=== PATIENT | male | born 1980 ===

== ENCOUNTER 2023-10-31 12:55 | Outpatient (POV) | payer BC, SELFPAY ==
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
--- OUTSIDE RECORDS SUMMARY | 2023-10-31 12:59 | XMS_ITS | Clinical Summary ---
Author Name Unknown Address [address] [place] [address] [place] [address] Phone Organization [facility] Address [address] [place] [address] Phone Care Team Providers Care Parts Specialist Name Role Phone Ashley AGUIRRE, Yefri Peace Unavailable [phone] JAYCE LOONEY PA-C Unavailable [phone] Reason for Visit and Chief Complaint [facility] Problems Includes: Problems addressed during this encounter and other active Problems All Visits Onset Date Resolved Date Provider Condition S tatus Joint Pain in Both Knees 07/18/2023 Bradley zapata MD Active Last Documented On 4 9:17AM ; [facility] Bone Pain in the Right Foot 11/05/2022 Yefri Ramirez DPM Active Last Documented On 3 9:45AM ; [facility] Plan of Treatment Pending Tests Order Diagnosis Results Due Ordering P rovider Radiology - MRI MRI Knee Pain in right knee 08/06/23 Gia Akins MD Last Documented On 4 12:04PM ; [facility], [facility] Future Appointments Date Time Location Provi ivelisse Follow Up 12/23/2023 11:00AM [facility] B Marisol Odonnell PA-C Last Documented On 4 2:40PM ; [facility] Assessments Includes: Assessments from this encounter No Assessments Recorded Medical Equipment - Implanted Devices Includes: Current Devices No Medical Equipment Recorded Medications Includes: Medications discussed during this encounter and other current Medications Current Medications (continue as prescribed) oxyCODONE HCl 5 MG Oral Tablet 08/21/2023 Provider: Nimesh Akins MD Diagnosis: 1-2 p o q 6-8h Last Documented On 4 8:39AM By Nimesh Akins M.D. ; [facility] Ondansetron HCl 4 MG Oral Tablet 08/21/2023 Provider : Nimesh Akins MD Diagnosis: 1 po q 6h prn nausea Last Documented On 4 8:39AM By Nimesh Akins M.D. ; [facility] Aspirin Adult Low Dose 81 MG Oral Tablet Delayed Release 08/21/2023 Provider: Nimesh Akins MD Diagnosis: once a day Last Documented On 4 8:39AM By Nimesh Akins M.D. ; [facility] Robaxin-750 750 MG Oral Tablet 11/05/2022 Provider: Diagnosis: Last Documented On 3 9:45AM By Lavinia Dyson ; [facility] Gabapentin 600 MG Oral Tablet 10/19/2022 Provider: JAYCE LOONEY PA-C Diagnosis: Last Documented On 3 9:45AM By Lavinia Dyson ; [facility] Medications Administered Includes: Administered Medications from this encounter No Administered Medications Recorded Results Includes: Results discussed during this encounter No Results Recorded For Specified Dates History of Present Illness Includes: History of Present Illness from this encounter No History of Present Illness Recorded Social History No Social History Recorded - Smoking Status Unknown Procedures and Surgical History Includes: Procedures from this encounter Procedures Code Diagnosis Performing Provider Service Location Service Date ATS PLICA EXCISION (RIGHT) [address]168 Hypertrophy of (infrapatellar) fat pad, Chondromalacia patellae, right knee Nimesh Akins MD [facility] Surgical Division 08/22/2023 Last Documented On 4 8:50AM ; [facility] Medical History Includes: Medical History addressed during this encounter No Medical History Recorded Family History Includes: Family History addressed during this encounter No Family History Recorded Review of Systems Includes: Review of Systems from this encounter No Review of Systems Recorded Mental Status Includes: Mental Status from this encounter No Mental Status Recorded Functional Status Includes: Functional Status from this encounter No Functional Status Recorded Physical Exam Includes: Physical Exam from this encounter No Physical Exam Recorded Allergies Includes: Active Allergies Substance Type Reaction Onset Date Resolved Date Statu s Ceftin Allergy 11/05/2022 Active Last Documented On 4 2:10PM ; [facility], [facility] Encounters Encounter Provider Location Date Check-In Time Check- Out Time Diagnosis [facility] Out[facility] Nimesh Akins MD Surgery 4 2:36PM 11:59PM Insurance Includes: Active Insurance Policies Plan Name Member ID Group # Subscriber Relationship Effect autumn Dates 1 - [facility] [id number] Douglas Berry Self Clinical Notes Includes: Clinical Notes from this encounter No Clinical Notes Recorded
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
--- OUTSIDE RECORDS SUMMARY | 2023-10-31 12:59 | XMS_ITS | Clinical Summary ---
Author Name Unknown Address [address] [place] [address] [place] [address] Phone Organization [facility] Address [address] [place] [address] Phone Care Team Providers Care Rn Cardiac Rehab Name Role Phone Ashley AGUIRRE, Yefri Peace Unavailable Unavailable AAYUSH RUBIO, DON Unavailable [phone] Reason for Visit and Chief Complaint The Chief Complaint is: bilateral knee pain Problems Includes: Problems addressed during this encounter and other active Problems All Visits Onset Date Resolved Date Provider Condition S tatus Joint Pain in Both Knees 07/18/2023 Bradley zapata MD Active Last Documented On 4 9:17AM ; [facility], [facility] Bone Pain in the Right Foot 11/05/2022 Yefri Ramirez DPM Active Last Documented On 3 9:45AM ; [facility] Plan of Treatment Pending Tests Order Diagnosis Results Due Ordering P rovider Radiology - MRI MRI Knee Pain in right knee 08/06/23 Gia Akins MD Last Documented On 4 12:04PM ; [facility], [facility] Future Appointments Date Time Location Provi ivelisse Follow Up 12/23/2023 11:00AM [facility] paedics [facility] B Marisol Odonnell PA-C Last Documented On 4 2:40PM ; [facility], [facility] Instructions to patient Lose weight Last Documented On 4 2:10PM ; [facility], [facility] Assessments Includes: Assessments from this encounter Findings HISTORY OF PRESENT ILLNESS - Last Documented On 10/22/2023 3:28PM ; [facility], [facility] The patient is a 43-year-old male presenting for right knee. He is now about 2 months out from right knee arthroscopy with fat pad debridement and patella chondral debridement. - Last Documented On 10/22/2023 3:28PM ; [facility], [facility] The patient reports overall improvement in his condition, however, he expresses a perceived decrease in mobility and a perceived cessation of improvement over the past 1 to 2 weeks. His physical therapist has recommended a return visit for further evaluation. He describes persistent swelling of the right knee, weakness, and a sensation of instability in the knee. - Last Documented On 10/22/2023 3:28PM ; [facility], [facility] PHYSICAL EXAM - Last Documented On 10/22/2023 3:28PM ; [facility], [facility] Well appearing male, in no acute distress. - Last Documented On 10/22/2023 3:28PM ; [facility], [facility] Right knee shows well-healed incisions. Range of [...] on the medial or lateral joint line. - Last Documented On 10/22/2023 3:28PM ; [facility], [facility] ASSESSMENT AND PLAN - Last Documented On 10/22/2023 3:28PM ; [facility], [facility] The patient is a 43-year-old male about 2 months out from right knee arthroscopy with fat pad debridement and patella chondral debridement. - Last Documented On 10/22/2023 3:28PM ; [facility], [facility] 1. Post-operative status of right knee arthroscopy. - Last Documented On 10/22/2023 3:28PM ; [facility], [facility] The majority of the patient's symptoms are [...] his strength and improve his overall well-being. - Last Documented On 10/22/2023 3:28PM ; [facility] Follow-up - Last Documented On 10/22/2023 3:28PM ; [facility] A follow-up appointment is scheduled for 2 months from now for a re-evaluation to ensure continued progress. - Last Documented On 10/22/2023 3:28PM ; [facility] Instructions Includes: Instructions from this encounter Instructions to patient Lose weight Last Documented On 4 2:10PM ; [facility] Medical Equipment - Implanted Devices Includes: Current Devices No Medical Equipment Recorded Medications Includes: Medications discussed during this encounter and other current Medications New / Renewed during this visit Nimesh Akins MD on 10/22/2023 Medrol 4 MG Oral Tablet Therapy Pack Provider: Nimesh Akins MD 7 day supply: 21 tablet, 0 refills Diagnosis: use as directed Pharmacy: [facility] - [address] [facility], [address] - Last Documented On 4 2:41PM By Melvina Wong ; [facility] Current Medications (continue as prescribed) oxyCODONE HCl 5 MG Oral Tablet 08/21/2023 Provider: Nimesh Akins MD Diagnosis: 1-2 p o q 6-8h Last Documented On 4 8:39AM By Nimesh Akins M.D. ; [facility] Ondansetron HCl 4 MG Oral Tablet 08/21/2023 Provider : Nimesh Akins MD Diagnosis: 1 po q 6h prn nausea Last Documented On 4 8:39AM By Nimesh Akins M.D. ; [facility] Aspirin Adult Low Dose 81 MG Oral Tablet Delayed Release 08/21/2023 Provider: Nimesh Akins MD Diagnosis: once a day Last Documented On 4 8:39AM By Nimesh Akins M.D. ; [facility] Robaxin-750 750 MG Oral Tablet 11/05/2022 Provider: Diagnosis: Last Documented On 3 9:45AM By Lavinia Dyson ; [facility], [facility] Gabapentin 600 MG Oral Tablet 10/19/2022 Provider: JAYCE LOONEY PA-C Diagnosis: Last Documented On 3 9:45AM By Lavinia Dyson ; [facility], [facility] Medications Administered Includes: Administered Medications from this encounter No Administered Medications Recorded Vital Signs Includes: Vital Signs from this encounter Vital Name 10/22/2023 02:10P Height (in) 70 Weight (lb) 190 Body Mass Index 27.3 Body Surface Area 2 Note: cl Last Documented: On 10/22/2023 2:11PM ; [facility], [facility] Results Includes: Results discussed during this encounter [...] Tobacco non-user 09/04/2023 Last Documented On 4 2:10PM ; [facility], [facility] No caffeine use 09/04/2023 Last Documented On 4 2:10PM ; [facility], [facility] No recent change in diet 09/04/2023 Last Documented On 4 2:10PM ; [facility], [facility] Not a current smoker. 09/04/2023 Last Documented On 4 2:10PM ; [facility], [facility] Not exercising regularly 09/04/2023 Last Documented On 4 2:10PM ; [facility], [facility] Not using alcohol 09/04/2023 Last Documented On 4 2:10PM ; [facility], [facility] Not using drugs 09/04/2023 Last Documented On 4 2:10PM ; [facility], [facility] Smoking Status Unknown Procedures and Surgical History Includes: Procedures from this encounter Procedures Code Diagnosis Performing Provider Service L ocation Service Date use of tobacco assessment performed 1000F Last Documented On 4 2:10PM ; [facility] review of medications documented 1160F Last Documented On 4 2:10PM ; [facility], [facility] Surgical History Last Updated Past Surgical History: lithotripsy,knee sx 11/05/2022 Last Documented On 4 2:10PM ; [facility], [facility] Medical History Includes: Medical History addressed during this encounter Description Last Updated Past medical history non-contributory Last Documented On 4 2:10PM ; [facility], [facility] Family History Includes: Family History addressed during this encounter Description Last Updated No significant family history 09/04/2023 Last Documented On 4 2:10PM ; [facility] Family history of heart disease 11/06/19 Last Documented On 4 2:10PM ; [facility], [facility] Review of Systems Includes: Review of Systems [...] Active Last Documented On 4 2:10PM ; [facility], [facility] Encounters Encounter Provider Location Date Check-In Time Check-Out Time Diagnosis Follow Up Nimesh Akins MD [facility] B 4 2:07PM 2:37PM Insurance Includes: Active Insurance Policies Plan Name Member ID Group # Subscriber Relationship Effect autumn Dates 1 - [facility] [id number] Douglas Berry Self Clinical Notes Includes: Clinical Notes from this encounter * Progress note Date Encounter Last Documented by 10/22/2023 Follow Up Last documented on 10/22/2023; 3:28 PM, Nimesh Akins MD; [facility], [facility] Active Problems & Conditions - Bone Pain [...]
--- OUTSIDE RECORDS SUMMARY | 2023-10-31 12:59 | XMS_ITS | Clinical Summary ---
Author Name Unknown Address [address] [place] [address] [place] [address] Phone Organization [facility] , [facility] Address [address] [place] [address] Phone Care Team Providers Care Overhauler Bus Truck Name Role Phone Ashley AGUIRRE, Yefri Peace Unavailable Unavailable AAYUSH RUBIO, DON Unavailable [phone] Reason for Visit and Chief Complaint Polar Care Problems Includes: Problems addressed during this encounter and other active Problems All Visits Onset Date Resolved Date Provider Condition S tatus Joint Pain in Both Knees 07/18/2023 Bradley zapata MD Active Last Documented On 4 9:17AM ; [facility], [facility] Bone Pain in the Right Foot 11/05/2022 Yefri Ramirez DPM Active Last Documented On 3 9:45AM ; [facility], [facility] Plan of Treatment Pending Tests Order Diagnosis Results Due Ordering P rovider Radiology - MRI MRI Knee Pain in right knee 08/06/23 O russell Akins MD Last Documented On 4 12:04PM ; [facility], [facility] Future Appointments Date Time Location Provi ivelisse Follow Up 12/23/2023 11:00AM [facility]ed[facility] B Marisol Odonnell PA-C Last Documented On 4 2:40PM ; [facility], [facility] Assessments Includes: Assessments from this encounter No [...] 4 8:39AM By Nimesh Akins M.D. ; [facility] Ondansetron HCl 4 MG Oral Tablet 08/21/2023 Provider : Nimesh Akins MD Diagnosis: 1 po q 6h prn nausea Last Documented On 4 8:39AM By Nimesh Akins M.D. ; [facility] Aspirin Adult Low Dose 81 MG Oral Tablet Delayed Release 08/21/2023 Provider: Nimesh Akins MD Diagnosis: once a day Last Documented On 4 8:39AM By Nimesh Akins M.D. ; [facility] Robaxin-750 750 MG Oral Tablet 11/05/2022 Provider: Diagnosis: Last Documented On 3 9:45AM By Lavinia Dyson ; [facility] Gabapentin 600 MG Oral Tablet 10/19/2022 Provider: JAYCE LOONEY PA-C Diagnosis: Last Documented On 3 9:45AM By Lavinia Dyson ; [facility] Medications Administered Includes: Administered Medications from [...] Diagnosis Performing Provider Service Location Service Date dme POLAR Hypertrophy of (infrapatellar) fat pad, Chondromalacia patellae, right knee Nimesh Akins MD [facility] 08/20/2023 Last Documented On 4 2:39PM ; [facility] Medical History Includes: Medical History addressed [...] Active Last Documented On 4 2:10PM ; [facility] Encounters Encounter Provider Location Date Check-In Time Check-Out Time Diagnosis Polar Care Nimesh Akins MD [facility] 08/20/2023 12:32PM 11:59PM Insurance Includes: Active Insurance Policies Plan Name Member ID Group # Subscriber Relationship Effect autumn Dates 1 - [facility] [id number] Douglas Berry Self Clinical Notes Includes: Clinical Notes from this encounter No Clinical Notes Recorded
--- OUTSIDE RECORDS SUMMARY | 2023-10-31 12:59 | XMS_ITS ---
Care Plan - [facility], [facility] Created on: October 31, 2023 Douglas Berry : 1980 Sex: Male Author Name Unknown Address [address] [place] [address] [place] [address] Phone Organization [facility] , [facility] Address [address] [place] [address] Phone Care Team Providers Care Hander In Name Role Phone Yefri Ramirez DPM Unavailable [phone] JAYCE LOONEY PA-C Unavailable [phone]
--- OUTSIDE RECORDS SUMMARY | 2023-10-31 12:59 | XMS_ITS | Clinical Summary ---
Author Name Unknown Address [address] [place] [address] [place] [address] Phone Organization [facility] , [facility] Address [address] [place] [address] Phone Care Team Providers Care Backend Python Developer Name Role Phone Yefri Ramirez DPM Unavailable [phone] JAYCE LOONEY PA-C Unavailable [phone] Reason for Visit and Chief Complaint Polar Care Problems Includes: Problems addressed during this encounter and other active Problems All Visits Onset Date Resolved Date Provider Condition S tatus Joint Pain in Both Knees 07/18/2023 Bradley zapata MD Active Last Documented On 4 9:17AM ; [facility], [facility] Bone Pain in the Right Foot 11/05/2022 Yefri Ramirez DPM Active Last Documented On 3 9:45AM ; [facility], [facility] Plan of Treatment Future Appointments Date Time Location Provi ivelisse Follow Up 12/23/2023 11:00AM [facility] paedics [facility] B Marisol Odonnell PA-C Last Documented On 4 2:40PM ; [facility], [facility] Assessments Includes: Assessments from this encounter No [...] 4 8:39AM By Nimesh Akins M.D. ; [facility], [facility] Ondansetron HCl 4 MG Oral Tablet 08/21/2023 Provider : Nimesh Akins MD Diagnosis: 1 po q 6h prn nausea Last Documented On 4 8:39AM By Nimesh Akins M.D. ; [facility], [facility] Aspirin Adult Low Dose 81 MG Oral Tablet Delayed Release 08/21/2023 Provider: Nimesh Akins MD Diagnosis: once a day Last Documented On 4 8:39AM By Nimesh Akins M.D. ; [facility], [facility] Robaxin-750 750 MG Oral Tablet 11/05/2022 Provider: Diagnosis: Last Documented On 3 9:45AM By Lavinia Dyson ; [facility], [facility] Gabapentin 600 MG Oral Tablet 10/19/2022 Provider: JAYCE LOONEY PA-C Diagnosis: Last Documented On 3 9:45AM By Lavinia Dyson ; [facility], [facility] Medications Administered Includes: Administered Medications from this encounter No Administered Medications Recorded Results Includes: Results discussed during this encounter No Results Recorded For Specified Dates History of Present Illness Includes: History of Present Illness from this encounter No History of Present Illness Recorded Social History No Social History Recorded - Smoking Status Unknown Medical History Includes: Medical History addressed during [...] Active Last Documented On 4 2:10PM ; [facility], [facility] Insurance Includes: Active Insurance Policies Plan Name Member ID Group # Subscriber Relationship Effect autumn Dates - [facility] [id number] Douglas Berry Self Clinical Notes Includes: Clinical Notes from this encounter No Clinical Notes Recorded
[2023-10-31 13:38] VITALS: BP 134/84; PULSE 85; RESP 18; O2SAT 97; BMI 34.7
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
== END 2023-10-31 23:59 | disposition home or self-care (01) ==
LOC: SC.PAIN 12:57
PROVIDERS: PCP Physician Assistant; Visit Provider Nurse Practitioner Family
DX: M54.50 Low back pain, unspecified (principal); G89.29 Other chronic pain; M54.2 Cervicalgia
CPT/HCPCS: 99202; G0463